=== PATIENT | male | born 1965 | race Caucasian/White ===

== ENCOUNTER → 2016-12-25 | Outpatient (CLI) | payer OTHER ==
--- NOTE | 2016-12-25 10:23 | DI ---
RIGHT ANKLE, 12/25/2016 9:16 AM: Clinical History: Pain in the right heel. Previous Exam: None at this facility. 3 views are submitted. There is no acute soft tissue, osseous, or joint abnormality. There are calcif ied spurs at the attachment of the Achilles tendon and the plantar fascia to the calcaneus. There is a bony density at the tip of the medial malleolus and the medial margin of the medial malleolus at th e level of the plafond consistent with previous injury to the deltoid ligament. The ankle mortise is intact. Vascular calcifications are noted in the posterior tibial artery. The pattern is typical of t hose patients who have diabetes. Readin. There are bony spurs at the attachment of the Achilles tendon and the plantar fascia to the calca neus. Evidence of old injury to the deltoid ligament. 2. Vascular calcifications are identified in the posterior tibial artery and they have the appearanc e of calcifications frequently associated with patients who have diabetes.
== END ==
LOC: MOB LAB 09:28
PROVIDERS: ATTEND Family Medicine
DX: S86.002A Unspecified injury of left Achilles tendon, initial encounter (principal); Y93.67 Activity, basketball
CPT/HCPCS: 73610

== ENCOUNTER → 2016-12-29 | Outpatient (CLI) | payer OTHER ==
--- NOTE | 2016-12-29 12:37 | DI ---
MRI LOW EXTREMITY W/O CN,12/29/2016 8:50 AM: Clinical History: Achilles injury. Previous Exam: None at this facility. Findings: Multiplanar MR images are obtained through the left ankle without contrast. Bony alignment is anatomi c. No fractures are seen. Marrow signal is preserved. The peroneal tendons are normal. The plantar fa scia is normal. Surrounding musculature is unremarkable. The anterior talofibular ligament is intact the posterior talofibular ligament is also intact. The flexor hallucis longus, flexor digitorum longus and posterior tibial tendon are intact. The major vascular flow voids are unremarkable. The spring ligament is intact. The cervical ligaments are also intact. The Achilles tendon demonstrates some mild increased signal just proximal to the insertion on the krystle caneus. There is no significant fat stranding nor fluid collection. The extensor tendons and peroneal tendons are intact. Impression: Very mild partial tear of the Achilles tendon.
== END ==
LOC: MRI 08:43
PROVIDERS: ATTEND Family Medicine
DX: M79.662 Pain in left lower leg (principal); S86.012A Strain of left Achilles tendon, initial encounter
CPT/HCPCS: 73718